=== PATIENT | male | born 1980 | race Caucasian/White ===

== ENCOUNTER 2022-02-13 13:43 | Outpatient (CLI) | payer OTHER, SELFPAY ==
[2022-02-13 11:23] LABS: Cholesterol* 176 mg/dL (90-199); Glucose* 111 mg/dL (60-115); HDL Cholesterol* 46 mg/dL (>=40); LDL Cholesterol Calculated 115 mg/dL (<100); Triglycerides* 75 mg/dL (40-149)
== END 2022-02-13 13:44 | disposition home or self-care (01) ==
PROVIDERS: PCP Internal Medicine; Visit Provider Family Medicine
DX: Z00.00 Encounter for general adult medical examination without abnormal findings (principal); Z13.6 Encounter for screening for cardiovascular disorders; Z13.1 Encounter for screening for diabetes mellitus
CPT/HCPCS: 80061; 82947

== ENCOUNTER 2022-05-18 19:23 | Outpatient (CLI) | payer OTHER, SELFPAY | END 2022-05-18 19:24 | disposition home or self-care (01) | LOC: SLEEP 19:24 | PROVIDERS: PCP Internal Medicine; Visit Provider Otolaryngology | DX: G47.30 Sleep apnea, unspecified (principal); R06.83 Snoring; G47.10 Hypersomnia, unspecified | CPT/HCPCS: 95806 ==

== ENCOUNTER 2022-12-09 15:24 | Outpatient (CLI) | payer OTHER, SELFPAY ==
--- NOTE | 2022-12-15 08:57 | W.PM.SLEEP ---
Sleep Study Details Details Interpreting Provider: Matt Date of Sleep Study: 12/09/22 Sleep Study Details: STUDY TYPE:? Home unattended ? BMI:? 25.1 ORDERING PROVIDER:? Matt INDICATION:? Concerns about sleep apnea ? SLEEP SUMMARY:? 409 minutes monitored RESPIRATORY SUMMARY:? AHI 7, supine 17.2, prone 1.4, left lateral 0.5, right lateral not enough sleep to differentiate Low oxygen 91 Snoring 0.2% PERIODIC LIMB MOVEMENTS OF SLEEP:? Not recorded during home study CARDIAC:? Range 42-84, mean 54.3 IMPRESSION:? Mild obstructive sleep apnea overall with moderate apnea in the supine position. There was minimal mole apnea in the lateral and prone positions RECOMMENDATION: Treatment options include positional therapy with avoidance of supine sleep, CPAP AutoSet 4-17, dental appliance and/or airway expansion surgery.
== END 2022-12-09 15:25 | disposition home or self-care (01) ==
LOC: SLEEP 15:27
PROVIDERS: PCP Internal Medicine; Visit Provider Otolaryngology
DX: G47.33 Obstructive sleep apnea (adult) (pediatric) (principal)
CPT/HCPCS: 95806